=== PATIENT | male | born 1980 | race Caucasian/White ===

== ENCOUNTER 2019-06-08 04:31 | Emergency (ER) | payer SELFPAY, OTHER ==
[2019-06-08] MEDS: KETOROLAC 15 MG INJ IV (04:54)
[2019-06-08 04:59] LABS: ADD MAN DIFF? NO
[2019-06-08 05:02] LABS: BASOPHIL # 0.1 10^3/ul (0.0-0.1); BASOPHILS % 0.6 % (0.0-2.0); EOSINOPHILS # 0.3 10^3/ul (0.0-0.5); EOSINOPHILS % 2.9 % (0.0-7.0); HEMATOCRIT 37.5 % (42.0-52.0); HEMOGLOBIN 12.1 g/dl (14.0-18.0); LYMPHOCYTES # 2.6 10^3/ul (0.8-2.9); LYMPHOCYTES % 25.7 % (15.0-51.0); MEAN CORPUSCULAR HEMOGLOBIN 28.1 pg (29.0-33.0); MEAN CORPUSCULAR HGB CONC 32.3 g/dl (32.0-37.0); MEAN PLATELET VOLUME 9.4 fl (7.4-10.4); MONOCYTE # 0.7 10^3/ul (0.3-0.9); MONOCYTES % 6.8 % (0.0-11.0); NEUTROPHIL # 6.4 10^3/ul (1.6-7.5); NEUTROPHILS % 63.6 % (39.0-77.0); PLATELET COUNT 268 10^3/UL (140-415); RED BLOOD COUNT 4.31 10^6/ul (4.70-6.10); RED CELL DISTRIBUTION WIDTH 13.4 % (11.5-14.5)
[2019-06-08 05:19] LABS: ALANINE AMINOTRANSFERASE 48 IU/L (13-69); ALBUMIN 3.7 g/dl (3.3-4.9); ALBUMIN/GLOBULIN RATIO 1.19; ALKALINE PHOSPHATASE 72 IU/L (42-121); ANION GAP 9 (5-13); ASPARTATE AMINO TRANSFERASE 44 IU/L (15-46); BILIRUBIN,INDIRECT 0.2 mg/dl (0-1.1); BILIRUBIN,TOTAL 0.2 mg/dl (0.2-1.3); BLOOD UREA NITROGEN 11 mg/dl (7-20); CALCIUM 8.9 mg/dl (8.4-10.2); CARBON DIOXIDE 27 mmol/L (21-31); CHLORIDE 103 mmol/L (97-110); CREATININE 1.01 mg/dl (0.61-1.24); Estimated GFR > 60 mL/min (>60); GLUCOSE 117 mg/dl (70-220); LIPASE 26 U/L (23-300); POTASSIUM 3.7 mmol/L (3.5-5.1); SODIUM 139 mmol/L (135-144); TOTAL PROTEIN 6.8 g/dl (6.1-8.1)
[2019-06-08 05:22] LABS: ETHANOL < 10.0 mg/dl (0-0)
[2019-06-08 05:30] LABS: TROPONIN-I < 0.012 ng/ml (0.000-0.120)
[2019-06-08] MEDS ORDERED: FUROSEMIDE 40 MG INJ IV (05:30)
[2019-06-08 05:40] LABS: B-TYPE NATRIURETIC PEPTIDE 38 PG/ML (0-125)
== END 2019-06-08 06:05 | disposition home or self-care (01) ==
LOC: E/R 04:31
DX: I10 Essential (primary) hypertension (principal); R60.0 Localized edema; F11.29 Opioid dependence with unspecified opioid-induced disorder
CPT/HCPCS: 36415; 71045; 80053; 80307; 83690; 83880; 84484; 85025; 93005; 96374; 99285-25